=== PATIENT | male | born 1960 | race Caucasian/White ===

== ENCOUNTER 2018-08-11 14:00 | Inpatient (IN) ==
[2018-08-11 14:31] LABS: BASO# 0.02 X1000 (0.0-0.2); BASO% 0.2 % (0.0-0.8); EOS# 0.03 X1000 (0.0-0.7); EOS% 0.2 % (0.0-10.0); HEMATOCRIT 50.4 % (42.0-52.0); HEMOGLOBIN 17.5 g/dL (14.0-18.0); IMM GRAN# 0.03 X1000 (0.0-0.04); IMM GRAN% 0.2 % (0.0-0.5); LYMPH# 1.46 X1000 (1.2-3.4); MCH 33.3 PG (27-31); MCHC 34.7 g/dL (33-37); MCV 95.8 FL (81-99); MONO# 0.65 X1000 (0.11-0.59); MONO% 5.4 % (1.7-9.3); MPV 10.9 FL (7.4-10.4); NEUT# 9.93 X1000 (1.4-6.5); PLT 196 X1000 (130-400); RBC 5.26 XMIL (4.7-6.1); RDW 12.2 % (11.5-14.5); WBC 12.12 X1000 (4.8-10.8)
[2018-08-11 15:06] LABS: AGAP 13; ALB/GLOB RATIO 1.5; ALBUMIN 4.6 g/dL (3.5-5.0); ALKALINE PHOSPHATASE 147 U/L (32-122); AMYLASE 53 U/L (20-200); BUN 7 mg/dL (8-22); CALCIUM 9.3 mg/dL (8.8-10.2); CHLORIDE 100 mmol/L (98-107); COSMO 282; ESTIMATED GFR > 60; GLUCOSE 146 mg/dL (70-104); GOT 17 U/L (10-34); GPT 45 U/L (10-44); LIPASE 26 U/L (13-60); POTASSIUM 3.9 mmol/L (3.5-5.1); SODIUM 141 mmol/L (136-145); TCO2 28 mmol/L (25-35); TOTAL PROTEIN 7.6 g/dL (6.3-8.3)
[2018-08-11] MEDS ORDERED: NS 1,000 ML IV ONE (16:16)
[2018-08-11] MEDS ORDERED: TORADOL IV ONE (16:16)
[2018-08-11] MEDS ORDERED: REGLAN IV ONE (16:16)
[2018-08-11] MEDS ORDERED: BENTYL IM ONE (16:16)
[2018-08-11] MEDS ORDERED: G.I. COCKTAIL PO ONE (16:16)
[2018-08-11] MEDS ORDERED: ZOFRAN IV ONE (16:16)
[2018-08-11] MEDS ORDERED: PEPCID IV ONE (16:16)
[2018-08-11] MEDS ORDERED: LABETALOL IV ONE (16:51)
--- NOTE | 2018-08-11 17:50 | Diag Imaging Result Doc PS360 ---
EXAM: CT ABD/PELVIS W/IV CONT ONLY INDICATION: epigastric pain TECHNIQUE: This exam was performed using automated exposure control, adjustment of mA or kV according to patient size, and/or use of iterative reconstruction technique. COMPARISON: 09/16/2011 FINDINGS: There are infiltrates at both lung bases, more prominent on the right suggesting possible pneumonia. However, there is also likely a component of atelectasis. Please correlate clinically. The gallbladder is distended and there is pericholecystic inflammatory stranding consistent with cholecystitis. No radiopaque stones are identified. The liver, spleen, pancreas, and adrenal glands are unremarkable. There is focal cortical scarring associated with the right kidney. The kidneys are essentially unremarkable, otherwise. The urinary bladder is unremarkable. There is uncomplicated diverticulosis coli. The appendix is normal. No focal bowel wall thickening and no bowel obstruction is appreciated. The remainder of the GI tract is grossly unremarkable. IMPRESSION: 1.Distended gallbladder with surrounding inflammatory stranding consistent with acute cholecystitis. 2.Mild infiltrates at both lung bases, more prominent on the right. Electronically signed by Norris Post 08/11/2018 5:48 PM
[2018-08-11 18:24] LABS: URINE SOURCE CLEAN CATCH
[2018-08-11] MEDS ORDERED: DILAUDID IV ONE (18:25)
[2018-08-11] MEDS ORDERED: ZOSYN 4.5 GM in NS 100 ML IV ONE (18:25)
[2018-08-11 18:27] LABS: BILIRUBIN URINE NEGATIVE (NEGATIVE); BLOOD URINE NEGATIVE (NEGATIVE); COLOR YELLOW; GLUCOSE URINE TRACE mg/dL (NEGATIVE); KETONE URINE 10 mg/dL (NEGATIVE); LEUKOCYTES URINE NEGATIVE (NEGATIVE); NITRITE URINE NEGATIVE (NEGATIVE); PH URINE 7.5; PROTEIN URINE TRACE mg/dL (NEGATIVE); SP GRAVITY URINE 1.032; TURBIDITY URINE CLEAR (CLEAR); UROBILINOGEN URINE NORMAL (NORMAL)
[2018-08-11 18:28] LABS: UR EPITHELIAL CELLS <10 /HPF (<10); URINE BACTERIA NEGATIVE /HPF; URINE RBC <10 /HPF (<10); URINE WBC <10 /HPF (<10)
--- NOTE | 2018-08-11 18:48 | PROVIDER DOCUMENTATION ---
This chart was entered by Misty Post Scribe, acting as scribe for Stalin Skelton MD. HPI-Abdominal Pain/GI Problem - General Chief Complaint: Abdominal Pain Stated Complaint: ABD PAIN Time Seen by Provider: 08/11/18 16:06 Source: patient Allergies/Adverse Reactions: Patient Allergies Allergy/AdvReac Type Severity Reaction Status Date / Time No Known Allergies Allergy Verified 03/03/18 10:05 Home Medications: Home Medication List Medication Instructions Recorded Confirmed Last Taken Type Omeprazole [Prilosec] 40 mg PO DAILY #30 capsule. 03/10/18 Unknown Rx - History of Present Illness-ABD Nature of Presenting Problems: 58 yom c/o abd pain, nausea and no appetite starting 0400. pt sts he has hx of gall stones and ulcers. pt took reflux meds w/no relief. pt gastro dr was Dr. Dhillon. pt drinks alcohol occ. pt denies diaphoresis, cp, and sob. Abdominal Pain Onset Location: reports: generalized abdomen Pain Radiation: reports: no radiation Quality of Pain: reports: aching Severity in ED: reports: mild Onset/Duration: reports: this morning Timing: reports: still present Activities at Onset: reports: none Review of Systems - Adult - REVIEW OF SYSTEMS - ADULT Constitutional: reports: no symptoms reported. denies: fever, fatique, night sweats Eyes: reports: no symptoms reported Ears, Nose, Mouth & Throat: reports: no symptoms reported Cardiovascular: reports: no symptoms reported. denies: chest pain, heart murmur, irregular heart rate Respiratory: reports: no symptoms reported. denies: pleurisy, shortness of breath, wheezing Gastrointestinal: reports: see HPI, abdominal pain, nausea, poor appetite. denies: hematemesis, constipation, diarrhea, vomiting Genitourinary: reports: no symptoms reported. denies: dysuria, discharge, frequency Musculoskeletal: reports: no symptoms reported. denies: back pain, muscle aches, neck pain Integumentary: reports: no symptoms reported Neurological: reports: no symptoms reported Psychiatric: reports: no symptoms reported Endocrine: reports: no symptoms reported Hematologic/Lymphatic: reports: no symptoms reported Allergic/Immunologic: reports: no symptoms reported All Other Systems: Reviewed and Negative Past History - Adult - PAST MEDICAL HISTORY-ADULT Review of Records: reports: Old Records Reviewed, Nursing Assessment Review, Medications Reviewed, Social history reviewed & non-contributory. Major Childhood Illnesses: reports: denies history Cardiovascular: reports: HTN Respiratory: reports: denies history Gastrointestinal: reports: GERD Obstetrical/Gynecological: reports: denies history Genitourinary: reports: denies history Musculoskeletal: reports: denies history Neurological: reports: denies history Endocrine/Immune: reports: denies history Other Conditions: reports: other (colon polyps) - PRIOR SURGERIES/PROCEDURES Surgical/Procedure History: reports: none - IMMUNIZATION STATUS Childhood Immunizations: See Nurse Assessment Flu Vaccine: See Nurse Assessment - FAMILY HISTORY Family History: reviewed, not pertinent - SOCIAL HISTORY Smoking: cigarettes, greater than 1 pack/day Provider spent 3-5 mins advising pt. on dangers of tobacco.: Discussed manners to quit use, and f/u contacts for add'l counseling. Substance Use: alcohol Alcohol Use Frequency: occasionally Physical Exam-General - PHYSICAL EXAM-ADULT Initial Vital Signs Reviewed: Yes - CONSTITUTIONAL General Appearance: alert, mild distress. negative: slow to respond, obtunded, combative - EYES Eyes: PERRL/EOMI, pink conjunctivae - HEAD, EARS, NOSE, MOUTH & THROAT HENMT: normocephalic/atraumatic, moist mucous membranes, normal ENT inspection - NECK Neck: non-tender, full range of motion, supple, normal inspection - RESPIRATORY Respiratory: chest non-tender, lungs clear, normal breath sounds - CARDIOVASCULAR Cardiovascular: normal peripheral pulses, regular rate, rhythm, other (pt bp 22/123 1410). negative: JVD, bradycardia, tachycardia - GASTROINTESTINAL (ABDOMEN) Abdominal Exam: normal bowel sounds, soft, no organomegaly, no pulsatile mass, guarding, tenderness (ten over gen abd w/light palp.). negative: non tender, abdominal bruit, abnormal bowel sounds, distended, rigid, rebound - LYMPHATIC Lymphatic: no adenopathy - MUSCULOSKELETAL Back Exam: normal inspection, no CVA tenderness, no vertebral tenderness Extremity: normal range of motion, non-tender, normal inspection Peripheral Pulses: radial (R): 2+, radial (L): 2+ - SKIN Integumentary: normal color, normal turgor, warm/dry - NEUROLOGIC Neurologic: grossly normal, no motor/sensory deficits - PSYCHIATRIC Psych/Mental Status: normal mood/affect, normal thought content, normal thought process, oriented x 3 Progress - PLAN OF CARE/RESULTS Progress/Plan/Lab Results: Vital Signs - 8 hr 08/11/18 14:10 Temperature 98.5 F Pulse Rate 77 Respiratory Rate 18 Blood Pressure 225/123 O2 Sat by Pulse Oximetry 99 Laboratory Results - last 24 hr 08/11/18 08/11/18 14:18 14:18 WBC 12.12 H RBC 5.26 Hgb 17.5 Hct 50.4 MCV 95.8 MCH 33.3 H MCHC 34.7 RDW Std Deviation 12.2 Plt Count 196 MPV 10.9 H Immature Gran % (Auto) 0.2 Neut % (Auto) 82.0 H Lymph % (Auto) 12.0 L Thomas % (Auto) 5.4 Eos % (Auto) 0.2 Baso % (Auto) 0.2 Immature Gran # (Auto) 0.03 Neut # (Auto) 9.93 H Lymph # (Auto) 1.46 Thomas # (Auto) 0.65 H Eos # (Auto) 0.03 Baso # (Auto) 0.02 Sodium 141 Potassium 3.9 Chloride 100 Carbon Dioxide 28 Anion Gap 13 BUN 7 L Creatinine 1.0 Estimated GFR/1.73 m2 > 60 BUN/Creatinine Ratio 7 Glucose 146 H Calculated Osmolality 282 Calcium 9.3 Total Bilirubin 0.80 AST 17 ALT 45 H Alkaline Phosphatase 147 H Total Protein 7.6 Albumin 4.6 Globulin 3.0 Albumin/Globulin Ratio 1.5 Amylase 53 Lipase 26 Orders Category Date Time Status Saline Loc DIRECTED Care 08/11/18 14:14 Active NPO Diet 08/11/18 14:[address] ABD/PELVIS W/IV CONT ONLY [CT] Stat Exams 08/11/18 16:16 Ordered ALCOHOL BLOOD Stat Lab 08/11/18 16:18 Ordered AMYLASE [CHEM] Stat Lab 08/11/18 14:18 Completed CBC WITH ELECTRONIC DIFF [HEME] Stat Lab 08/11/18 14:18 Completed COMPREHENSIVE METABOLIC PANEL [CHEM] Stat Lab 08/11/18 14:18 Completed LIPASE [CHEM] Stat Lab 08/11/18 14:18 Completed OCCULT BLOOD SCREENING [STOOL] Stat Lab 08/11/18 16:17 Uncollected URINALYSIS W/POSS RFLX CULT [URINALYSIS] Stat Lab 08/11/18 14:14 Uncollected 0.9% Sodium Chloride Inj [Ns] 1,000 ml Med 08/11/18 16:16 Active IV 999 mls/hr Dicyclomine [Bentyl] Med 08/11/18 16:16 Discontinued 20 mg IM NOW ONE Famotidine [Pepcid] Med 08/11/18 16:16 Discontinued 40 mg IV NOW ONE Ketorolac [Toradol] Med 08/11/18 16:16 Discontinued 15 mg IV NOW ONE Lido/Conway Alk/Al&mg Hydrox [G.i. Cocktail] Med 08/11/18 16:16 Discontinued 30 ml PO NOW ONE Metoclopramide [Reglan] Med 08/11/18 16:16 Discontinued 10 mg IV NOW ONE Ondansetron [Zofran] Med 08/11/18 16:16 Discontinued 4 mg IV NOW ONE Result Diagrams: 08/11/18 14:18 08/11/18 14:18 - CT/MRI 1 CT Study: Abdomen Impression: Abnormal, See EMR Report ( EXAM: CT ABD/PELVIS W/IV CONT ONLY INDICATION: epigastric pain TECHNIQUE: This exam was performed using automated exposure control, adjustment of mA or kV according to patient size, and/or use of iterative reconstruction technique. COMPARISON: 09/16/2011 FINDINGS: There are infiltrates at both lung bases, more prominent on the right suggesting possible pneumonia. However, there is also likely a component of atelectasis. Please correlate clinically. The gallbladder is distended and there is pe richolecystic inflammatory stranding consistent with cholecystitis. No radiopaque stones are identified. The liver, spleen, pancreas, and adrenal glands are unremarkable. There is focal cortical scarring associated with the right kidney. The kidneys are essentially unremarkable, otherwise. The urinary bladder is unremarkable. There is uncomplicated diverticulosis coli. The appendix is normal. No focal bowel wall thickening and no bowel obstruction is appreciated. The remainder of the GI tract is grossly unremarkable. IMPRESSION: 1.Distended gallbladder with surrounding inflammatory stranding consistent with acute cholecystitis. 2.Mild infiltrates at both lung bases, more prominent on the right. Electronically signed by Norris Post 08/11/2018 5:48 PM [id number] Interpreting Physician: Norris Post MD Dictated Date/Time: 08/11/18 2766 cc: Stalin Skelton MD; None,PCP) - CONSULTS/PCP/HOSPITALIST Notification #1 *Consult/PCP/Hospitalist*: Garret paged at 1823 Time Discussed: 18:26 Reason/Comments: Clear liquids, surgery maybe Tuesday, admit to hospitlaist Consult Disposition: Admit #2 Consult: Hospitalist paged at 1827 Time Discussed: 18:45 (Richie) Consult Disposition: Admit Departure - Departure Date of Disposition Decision: 08/11/18 Time of Disposition Decision: 18:46 DIAGNOSIS: Acalculous cholecystitis, Hypertensive urgency, Tobacco use disorder Disposition: ADMITTED INPATIENT 09 Certified Medical Emergency: Emergent Condition: Fair Referrals and Follow-Ups: None,PCP [Primary Care Provider] - - Critical Care Note This patient required my direct & personal management of CC.: Yes Total Time (mins): 40 Critical Care Statement: This patient required my direct personal management to treat or rule out processes, the absence of which, could potentiallly result in sudden, clinically significant life or limb threatening deterioration. Attestation - Physician/ SONDRA Attestation Patient care was provided by Advanced Practice Provider:: No The physician spent face to face time with patient:: Yes Advanced Practice Provider documentation review:: Supervising physician onsite and consulted in the evaluation and care of this patient. The physician did have a face to face encounter with the patient. This chart was documented by the indicated scribe, (Misty Post Scribe) and accurately reflects the services I performed and decisions made by me, Stalin Skelton MD, as attested by the provider's signature.
--- NOTE | 2018-08-11 19:51 | Diag Imaging Result Doc PS360 ---
EXAM: US GB < RUQ (LIMITED) INDICATION: ruq pain COMPARISON: 01/27/2018 FINDINGS: There are several shadowing stones in the lumen of the gallbladder including a large stone lodged in the gallbladder neck. The gallbladder is distended and there is gallbladder wall thickening consistent with known cholecystitis also seen on a recent CT. The common bile duct is borderline prominent measuring up to 7 mm in diameter. The wellness nurse rn reported a negative sonographic Mendoza sign but the patient has recently been given pain medication. The liver is grossly unremarkable. Portal venous flow is hepatopetal. The pancreas is largely obscured. The visualized portion is unremarkable. The aorta and IVC are grossly unremarkable. The right kidney is grossly unremarkable. IMPRESSION: Distended gallbladder with cholelithiasis and thickening of the gallbladder wall consistent with known cholecystitis, which is also seen on the recent CT. Electronically signed by Norris Post 08/11/2018 7:48 PM
[2018-08-11] MEDS ORDERED: PROTONIX IV SCH (20:00)
[2018-08-11] MEDS ORDERED: SODIUM CHLORIDE 0.9% INJ SCH (20:00)
[2018-08-11 20:07] LABS: HEMOGLOBIN A1C 5.4 % (4.8-6.0)
[2018-08-11] MEDS ORDERED: ZITHROMAX 500 MG/NS 500 MG/250 ML IVPB IV SCH (21:00)
--- NOTE | 2018-08-11 21:48 | HISTORY AND PHYSICAL ---
CHIEF COMPLAINT: Abdominal pain. HISTORY OF PRESENT ILLNESS: Mr. Motley is a 58-year-old male with a history of malignant polyp with frequent colonoscopies. I believe he had an Candace tattoo placed to follow up on the lesion and maybe at some point, he stopped following up but he had been seeing Dr. Korina Dhillon and has had recurrent multiple polyps with removal. At any rate, he also has gallstones, which were known. He has had ultrasound of his gallbladder in the past. Today he started having intense abdominal pain in the right upper quadrant and nausea and vomiting, so he came into the Emergency Room. CT and ultrasound showed distended gallbladder with cholelithiasis and cholecystitis. Dr. Combs was consulted. The patient will be admitted for further evaluation and treatment. PAST MEDICAL HISTORY: 1. Malignant polyp. 2. Hypertension, untreated. 3. Tobacco use. 4. Questionable GI bleed. 5. GERD. PREVIOUS SURGICAL HISTORY: Endoscopy and colonoscopy with multiple polyps removed. ALLERGIES: No known drug allergies. HOME MEDICATIONS: Protonix 40 mg p.o. daily. FAMILY HISTORY: Colon cancer in his father. REVIEW OF SYSTEMS: A 14-point review of systems was completed with the patient. He denied melena, sarah colored stools. He did admit to nausea and vomiting. Denied any hematemesis. The patient has also not had hematochezia or diarrhea. Denied fever and chills. States that he has had a nonproductive cough. All other systems reviewed and found to be negative. Other pertinent positives are listed above in the HPI. PHYSICAL EXAMINATION: VITAL SIGNS: Temperature 97.7 degrees, pulse 70, respirations 12, blood pressure 195/110, oxygen saturation 97% on room air. GENERAL: A pleasant, 58-year-old male lying on the ER stretcher. Answers all questions appropriately. Alert and oriented x 3. HEENT: Head is atraumatic, normocephalic. Pupils equal, round and reactive to light. Extraocular eye movements are intact. Sclerae are anicteric. Conjunctivae are pink. Oral mucosa is moist. NECK: Supple. No JVD. No thyromegaly. Trachea is midline. No cervical lymphadenopathy. CARDIAC: S1, S2 appreciated. No murmurs, gallops or rubs. LUNGS: Mild expiratory wheezing noted throughout the air mills. No rhonchi, no rales. Symmetrical rise and fall with respirations. ABDOMEN: Bowel sounds present in all 4 quadrants and normoactive. No pulsatile masses. No organomegaly. EXTREMITIES: No cyanosis, clubbing or edema; 2+ pedal pulses bilaterally. GENITOURINARY: No bladder distention. Otherwise deferred. NEUROLOGICAL: Alert and oriented x 3. No focal motor deficits noted. Otherwise nonfocal examination. DIAGNOSTIC DATA: CT and abdominal ultrasound show cholecystitis and cholelithiasis. Bilateral lower lobe infiltrates in the lungs noted. Laboratory data: WBC 12.12, hemoglobin 17.5, hematocrit 50.4, platelet count 196. Sodium 141, potassium 3.9, chloride 100, carbon dioxide 28, BUN 7, creatinine 1, glucose 146. Hemoglobin A1C of 5.4. Urinalysis unremarkable. ASSESSMENT AND PLAN: 1. Cholelithiasis with cholecystitis. We will give Zosyn 3.375 grams IV q.6h. Morphine as needed for pain. Zofran as needed for nausea. Clear liquids. Dr. Combs has been consulted for surgery. 2. Gastroesophageal reflux disease. Protonix 40 mg IV daily. 3. Bilateral lobe infiltrates. Questionable aspiration pneumonia versus community-acquired pneumonia. We will add azithromycin to the patient's antibiotics schedule and get blood cultures. Order repeat x-ray tomorrow morning. 4. Tobacco abuse. Smoking cessation was gone over with the patient and he does not want to quit at this time. A NicoDerm patch will be added to his medication profile. 5. Previous history of malignant polyp. The patient was informed that Dr. Dhillon is no longer practicing. He will need to follow up with Dr. Carrizales. He has been following up on this and the patient is aware of the physician scheduling that will need to be changed. 6. Further recommendations per patient's clinical course. Dictated by NHUNG Gonzalez for Jett Quiroz MD I have performed a face to face diagnostic evaluation. Labs/ Imaging- reviewed. Exam- chest - clear, ABD- RUQ tenderness A/P- Cholecystitis- Admit, IV ABX, General surgery consult. Dr. Quiroz cc: NHUNG Gonzalez MD Matthew L. Figh, MD Khurshid Yousuf, MD MTDD
[2018-08-11] MEDS: MORPHINE IV PRN (22:39)
[2018-08-11] MEDS: ZOFRAN IV PRN (22:39)
[2018-08-11] MEDS: TYLENOL PO PRN (22:39)
[2018-08-11] MEDS: ZITHROMAX 500 MG/NS 500 MG/250 ML IVPB IV SCH (22:41)
[2018-08-11] MEDS: NS 1,000 ML IV SCH (23:37)
[2018-08-11] MEDS: APRESOLINE IV PRN (23:44)
[2018-08-12] MEDS: NICODERM PATCH TD SCH ×2 (00:51→08:18)
[2018-08-12] MEDS: ZOFRAN IV PRN ×3 (00:58→08:32)
[2018-08-12] MEDS: MORPHINE IV PRN ×2 (00:58→04:12)
[2018-08-12] MEDS: APRESOLINE IV PRN (03:19)
[2018-08-12] MEDS: DILAUDID IV PRN ×6 (04:53→23:37)
[2018-08-12] MEDS: TYLENOL PO PRN ×2 (04:55→20:18)
[2018-08-12] MEDS: PROTONIX PO SCH ×2 (04:55→08:19)
[2018-08-12] MEDS: ZOSYN 3.375 GM in NS 50 ML IV SCH ×4 (05:24→23:37)
[2018-08-12] MEDS: DUONEB (A & A) INH SCH ×4 (05:38→21:58)
[2018-08-12 06:11] LABS: BASO# 0.01 X1000 (0.0-0.2); BASO% 0.1 % (0.0-0.8); EOS# 0.01 X1000 (0.0-0.7); EOS% 0.1 % (0.0-10.0); HEMATOCRIT 45.4 % (42.0-52.0); HEMOGLOBIN 15.8 g/dL (14.0-18.0); IMM GRAN# 0.06 X1000 (0.0-0.04); IMM GRAN% 0.4 % (0.0-0.5); LYMPH# 1.83 X1000 (1.2-3.4); LYMPH% 12.5 % (20.5-51.1); MCH 33.5 PG (27-31); MCHC 34.8 g/dL (33-37); MCV 96.4 FL (81-99); MONO# 1.07 X1000 (0.11-0.59); MONO% 7.3 % (1.7-9.3); MPV 11.1 FL (7.4-10.4); NEUT# 11.62 X1000 (1.4-6.5); NEUT% 79.6 % (42.2-75.2); PLT 171 X1000 (130-400); RBC 4.71 XMIL (4.7-6.1); RDW 12.3 % (11.5-14.5)
[2018-08-12 06:34] LABS: INR 0.94; PROTIME 13.3 Seconds (11.0-16.0); PTT 33.1 Seconds (22.3-41.8)
[2018-08-12 06:38] LABS: AGAP 11; BUN 6 mg/dL (8-22); CALCIUM 8.3 mg/dL (8.8-10.2); CHLORIDE 100 mmol/L (98-107); COSMO 275; CREATININE 0.7 mg/dL (0.7-1.2); ESTIMATED GFR > 60; GLUCOSE 122 mg/dL (70-104); POTASSIUM 3.1 mmol/L (3.5-5.1); SODIUM 138 mmol/L (136-145); TCO2 27 mmol/L (25-35)
--- NOTE | 2018-08-12 07:01 | GENERAL SURGERY CONSULTATION ---
DATE: 08/12/2018 HISTORY OF PRESENT ILLNESS: A 58-year-old male, with a history of malignant polyps and frequent colonoscopies, presenting now with intense abdominal pain in the right upper quadrant, nausea, and vomiting. He has had a history of cholelithiasis. He came to the emergency department, had a CT scan that showed distended gallbladder, cholelithiasis, and cholecystitis, and had an ultrasound that confirmed it. He has been admitted by the hospitalist service and I have been asked to evaluate an opinion. The patient says he is feeling better since he was admitted and started on IV pain medicine and antibiotics. PAST MEDICAL HISTORY: History of polyps. Hypertension. Tobacco use. Questionable GI bleed. Gastroesophageal reflux disease. PAST SURGICAL HISTORY: EGD and colonoscopy. ALLERGIES: None. HOME MEDICATIONS: Reviewed. FAMILY HISTORY: Positive for colon cancer. REVIEW OF SYSTEMS: A full 10 point review of systems obtained and negative except those specified in the HPI. PHYSICAL EXAMINATION: Vitals: The patient is currently afebrile. His vital signs are stable. General: No acute distress. HEENT: Normocephalic, atraumatic. Pupils equal, round, and reactive to light. Mucous membranes moist. Oropharynx benign. Neck: Supple. Trachea midline. Cardiovascular: Regular rate and rhythm. Lungs: Grossly clear. Abdomen: Soft. Some tenderness in the right upper quadrant but no peritoneal signs. Extremities: Moves all extremities. Neurologic: Grossly intact. Skin: No signs of jaundice. Vascular: All extremities perfused. DIAGNOSTIC DATA: Laboratory reviewed from this morning with white blood cell count 14, hematocrit normal, platelet count normal. Bilirubin was normal yesterday. Imaging reviewed. ASSESSMENT AND PLAN: A 58-year-old with cholecystitis. 1. Cholecystitis. At this time, we will plan on surgical intervention tomorrow. We will give him 24 hours of antibiotics, make him NPO after midnight. Discussed with him the risks, benefits, and alternatives of the procedure, risks including but not limited to bleeding, infection, risk of anesthesia risk of common bile duct injury risk of bile leak, risk of injuring other organs, all discussed with the patient. He voiced understanding and wished to proceed with the procedure. 2. History of malignant polyps. At this time, we will get him over his acute issue then plan for colonoscopy in the near future on the patient. I can do this in the outpatient setting for the patient. 3. Medical comorbidities. At this time being managed by the hospitalist service. I appreciate their help. cc: Richard Combs MD
[2018-08-12] MEDS: NS 1,000 ML IV SCH ×2 (08:18→23:42)
[2018-08-12] MEDS ORDERED: DUONEB (A & A) INH PRN (16:38)
[2018-08-12] MEDS: PRINIVIL PO SCH (16:59)
--- NOTE | 2018-08-12 19:01 | PROGRESS NOTE ---
DATE: 08/12/2018 SUBJECTIVE: The patient has no major complaints. He is seems like he is doing okay. OBJECTIVE: Blood pressure is 155/86, heart rate 92, respiratory rate is 16, temperature was 98 degrees.Cardiovascular: Regular rate and rhythm. Pulmonary: Bilateral breath sounds, clear to auscultation. GI was soft, nontender, nondistended. Bowel sounds are positive. Extremity exam: No clubbing or cyanosis. Lymphatic exam: No peripheral edema. Neurological exam was nonfocal. LABORATORY DATA: White count is 14, potassium is 3.1. TSH is 4. ASSESSMENT AND PLAN: Problem list: 1. Acute cholecystitis. Plan for laparoscopic cholecystectomy tomorrow. He is on Zosyn, intravenous pain medication, Zofran. 2. Gastroesophageal reflux disease. He is on proton pump inhibitor, which we have replaced with p.o. 3. Pneumonia. He is on antibiotics, Zosyn and azithromycin. Continue to follow. 4. Hypertension, which is not completely controlled. He is not on any medications that I can tell, so we will initiate lisinopril and follow. 5. Disposition pending his clinical status. cc: Rivera Siddiqi MD
[2018-08-12] MEDS ORDERED: ZITHROMAX 500 MG/NS 500 MG/250 ML IVPB IV SCH (20:00)
[2018-08-12] MEDS: ZITHROMAX 500 MG/NS 500 MG/250 ML IVPB IV SCH ×2 (20:17→23:23)
[2018-08-12] MEDS ORDERED: AYR NASAL SPRAY NAS PRN (20:17)
[2018-08-13] MEDS: ZOSYN 3.375 GM in NS 50 ML IV SCH ×4 (05:43→22:24)
[2018-08-13 06:26] LABS: BASO# 0.03 X1000 (0.0-0.2); BASO% 0.2 % (0.0-0.8); EOS# 0.02 X1000 (0.0-0.7); EOS% 0.1 % (0.0-10.0); HEMATOCRIT 46.5 % (42.0-52.0); HEMOGLOBIN 15.8 g/dL (14.0-18.0); IMM GRAN# 0.07 X1000 (0.0-0.04); IMM GRAN% 0.4 % (0.0-0.5); LYMPH# 1.64 X1000 (1.2-3.4); LYMPH% 8.5 % (20.5-51.1); MCH 33.1 PG (27-31); MCV 97.5 FL (81-99); MONO# 1.48 X1000 (0.11-0.59); MONO% 7.7 % (1.7-9.3); MPV 11.4 FL (7.4-10.4); NEUT% 83.1 % (42.2-75.2); PLT 179 X1000 (130-400); RBC 4.77 XMIL (4.7-6.1); RDW 12.5 % (11.5-14.5); WBC 19.34 X1000 (4.8-10.8)
--- NOTE | 2018-08-13 06:54 | GENERAL SURGERY PROGRESS NOTE ---
DATE: 08/13/2018 SUBJECTIVE: Patient seems to be doing okay. He is feeling a little bit better. OBJECTIVE: Vital Signs: The patient is currently afebrile. He does have a low-grade tachycardia, 110s. Otherwise, his vital signs have been stable. General Examination: No acute distress. Alert and interactive. HEENT: Normocephalic, atraumatic. Pupils equal, round, reactive to light. Mucous membranes moist. Oropharynx benign. Neck: Supple. Trachea midline. Cardiovascular: Regular rate and rhythm. Lungs: Grossly clear. Abdominal Examination: Less tender to palpation in the right upper quadrant. Extremities: Moves all extremities. Neurologic: Grossly intact. Skin: No signs of jaundice. Vascular: All extremities perfused. Laboratory: Reviewed from yesterday. ASSESSMENT AND PLAN: A 58-year-old gentleman with cholecystitis. 1. Cholecystitis. At this time, we will plan on surgical intervention today. Discussed with him and documented in the note the risks, benefits, and alternatives. Again, he is on the schedule for today. 2. Hypothyroidism. At this time, we will probably evaluate further as an outpatient. cc: Richard Combs MD
[2018-08-13 06:57] LABS: AGAP 14; BUN 9 mg/dL (8-22); CALCIUM 8.6 mg/dL (8.8-10.2); CHLORIDE 93 mmol/L (98-107); COSMO 264; CREATININE 0.8 mg/dL (0.7-1.2); ESTIMATED GFR > 60; GLUCOSE 84 mg/dL (70-104); SODIUM 133 mmol/L (136-145); TCO2 26 mmol/L (25-35)
[2018-08-13] MEDS: PROTONIX PO SCH (07:23)
[2018-08-13] MEDS ORDERED: QUELICIN (DOSE) ONE (07:53)
[2018-08-13] MEDS ORDERED: VERSED ONE (07:53)
[2018-08-13] MEDS ORDERED: XYLOCAINE-MPF 2% ONE (07:53)
[2018-08-13] MEDS ORDERED: DIPRIVAN 1% ONE (07:53)
[2018-08-13] MEDS ORDERED: PEPCID ONE (07:54)
[2018-08-13] MEDS ORDERED: LR 1,000 ML ONE (08:02)
[2018-08-13] MEDS ORDERED: MARCAINE 0.25% PF/EPI 1:200,000 ONE (08:02)
[2018-08-13] MEDS ORDERED: SODIUM CHLORIDE 0.9% ONE (08:02)
[2018-08-13] MEDS ORDERED: FENTANYL ONE (08:09)
[2018-08-13] MEDS ORDERED: TORADOL ONE (08:11)
[2018-08-13] MEDS ORDERED: DECADRON ONE (08:11)
[2018-08-13] MEDS ORDERED: ZOFRAN ONE (08:11)
[2018-08-13] MEDS ORDERED: ZEMURON ONE (08:11)
[2018-08-13] MEDS ORDERED: EPHEDRINE ONE (08:16)
[2018-08-13] MEDS ORDERED: ROBINUL ONE (09:12)
[2018-08-13] MEDS ORDERED: NEOSTIGMINE ONE (09:12)
[2018-08-13] MEDS: PRINIVIL PO SCH (10:31)
[2018-08-13] MEDS: NICODERM PATCH TD SCH (10:32)
[2018-08-13] MEDS: DUONEB (A & A) INH SCH ×3 (10:48→22:50)
--- NOTE | 2018-08-13 11:06 | OPERATIVE NOTE ---
PROCEDURE DATE: 08/13/2018 PREOPERATIVE DIAGNOSIS: Acute cholecystitis. POSTOP DIAGNOSIS: Acute cholecystitis. PROCEDURE: Laparoscopic cholecystectomy. SURGEON: Richard Combs MD. RESOURCE TEACHER: None. ANESTHESIA: General endotracheal. INTRAOPERATIVE FINDINGS: Inflamed gallbladder with a white bile consistent with cystic duct obstruction. COMPLICATIONS: None at time of dictation. ESTIMATED BLOOD LOSS: 50 mL. SPECIMENS REMOVED: Gallbladder. BRIEF HISTORY: 58-year-old gentleman presenting with classic symptoms for cholecystitis. I felt that he would benefit from a cholecystectomy. The risks, benefits, and alternatives were discussed and documented in the chart. All questions answered. PROCEDURE: After informed consent was obtained patient brought to the operative theatre, transferred to the operative table, placed in supine position. General endotracheal anesthesia was then performed without complication. A formal time-out was then performed confirming patient and procedure. All in agreement. At that time, attention was given to the abdomen an infraumbilical incision was made through which using Optiview technique we inserted a 12 mm trocar connected to insufflation, pneumoperitoneum was achieved. Under direct physician placed 3 more trocars, all 5 mm, 1 subxiphoid., 2 in the right upper quadrant. Using these the gallbladder was identified. There was a dense adhesive process inflammatory process occurring. The omentum was stuck up against it. We were able to dissect the rind off the gallbladder. We had to aspirate some of the gallbladder fluid which was white bile suggesting cystic duct obstruction out. We retracted cephalad. With some difficulty we were able to dissect out the cystic artery, doubly clipped and ligated. We dissected out the cystic duct. We achieved the critical view of safety. Doubly clipped the cystic duct but it was very large, so we placed an Endoloop around it also. We dissected the gallbladder off the gallbladder fossa. Since we drained a significant amount of bile, there was bleeding. It was inflamed and we had difficulty with the cystic duct. We elected to leave a drain for the most lateral trocar site, placed in the gallbladder fossa. We then put the gallbladder into an Endobag and brought out through the infraumbilical incision that had to be enlarged to accommodate the stone burden. He did have large stones in his gallbladder. We irrigated out the abdomen until the suction fluid was clear. At the completion the case, we felt like the Endoloop and the clips were in good position. There was no active bleeding, no drainage of bile. We then removed insufflation, disconnected the trocars and pneumoperitoneum was released. We then closed the fascia with 0 Vicryl in 2 [id number] stitches. We then closed all skin incisions with 4-0 Monocryl suture. We then secured the drain in with 3-0 nylon. The patient tolerated procedure well. We will need to keep him in hospital for 24 hours to watch him. cc: Richard Combs MD
[2018-08-13] MEDS: DILAUDID IV PRN (12:28)
[2018-08-13] MEDS: POTASSIUM CHLORIDE 20 MEQ/SWI 20 MEQ/100 ML IVPB IV SCH ×2 (12:49→15:02)
[2018-08-13] MEDS: NS 1,000 ML IV SCH ×2 (13:30→15:03)
--- NOTE | 2018-08-13 17:25 | PROGRESS NOTE ---
DATE: 08/13/2018 SUBJECTIVE: The patient has no complaints. He is seen postoperatively, doing pretty well, feels like pain is under control. He has acute cholecystitis, laparoscopic cholecystectomy today. Vital signs: Blood pressure is like 1 teens over 70s, heart rate 90s, respiratory rate 20, temperature was 99.5 degrees. Cardiovascular: Regular rate and rhythm. Pulmonary: Bilateral breath sounds clear to auscultation. GI: Was soft, nontender, nondistended. Bowel sounds are positive. He had dressings overlying his laparoscopy scar that seemed intact. LABORATORY DATA: White count is 19 which is up from yesterday, hemoglobin and hematocrit 15 and 46, platelets 177,000. Potassium 3, sodium 133, free T4 normal consistent with sick euthyroid. PROBLEM LIST: 1. Acute cholecystitis status post laparoscopic cholecystectomy. I would continue Zosyn at least until his white count comes down. 2. Pneumonia, reported pneumonia on x-ray. Will repeat his chest x-ray tomorrow and see what is going on there. Continue incentive spirometry. Continue breathing treatments. 3. Hypertension. He is on lisinopril. That seems to be controlling his blood pressure pretty well. DISPOSITION: Pending his clinical status. I think overall he seems to be doing better. Home will be per [facility]. cc: Rivera Siddiqi MD
[2018-08-13 18:10] LABS: AGAP 14; ALB/GLOB RATIO 1.1; ALBUMIN 3.4 g/dL (3.5-5.0); ALKALINE PHOSPHATASE 93 U/L (32-122); BUN 10 mg/dL (8-22); CALCIUM 8.3 mg/dL (8.8-10.2); CHLORIDE 95 mmol/L (98-107); COSMO 269; CREATININE 1.1 mg/dL (0.7-1.2); ESTIMATED GFR > 60; GLUCOSE 138 mg/dL (70-104); GOT 35 U/L (10-34); GPT 30 U/L (10-44); POTASSIUM 3.9 mmol/L (3.5-5.1); SODIUM 134 mmol/L (136-145); TCO2 25 mmol/L (25-35); TOTAL BILIRUBIN 1.41 mg/dL (0.20-1.00); TOTAL PROTEIN 6.5 g/dL (6.3-8.3)
[2018-08-13] MEDS: ZITHROMAX 500 MG/NS 500 MG/250 ML IVPB IV SCH (22:24)
[2018-08-14] MEDS: NS 1,000 ML IV SCH (03:14)
[2018-08-14] MEDS: ZOSYN 3.375 GM in NS 50 ML IV SCH ×2 (04:09→11:22)
[2018-08-14] MEDS: DILAUDID IV PRN ×2 (05:19→11:22)
[2018-08-14] MEDS: PROTONIX PO SCH (06:04)
[2018-08-14 06:24] LABS: BASO# 0.01 X1000 (0.0-0.2); BASO% 0.1 % (0.0-0.8); EOS# 0.01 X1000 (0.0-0.7); EOS% 0.1 % (0.0-10.0); HEMATOCRIT 38.2 % (42.0-52.0); HEMOGLOBIN 13.1 g/dL (14.0-18.0); IMM GRAN# 0.04 X1000 (0.0-0.04); IMM GRAN% 0.3 % (0.0-0.5); LYMPH# 0.83 X1000 (1.2-3.4); LYMPH% 6.1 % (20.5-51.1); MCH 33.7 PG (27-31); MCHC 34.3 g/dL (33-37); MCV 98.2 FL (81-99); MONO# 1.13 X1000 (0.11-0.59); MONO% 8.3 % (1.7-9.3); NEUT# 11.56 X1000 (1.4-6.5); NEUT% 85.1 % (42.2-75.2); PLT 155 X1000 (130-400); RBC 3.89 XMIL (4.7-6.1); RDW 12.2 % (11.5-14.5); WBC 13.58 X1000 (4.8-10.8)
--- NOTE | 2018-08-14 07:10 | GENERAL SURGERY PROGRESS NOTE ---
DATE: 08/14/2018 SUBJECTIVE: Patient seems to be doing better. He is sore. OBJECTIVE: Vital Signs: The patient is currently afebrile. His vital signs are stable. General Examination: No acute distress. Cardiovascular: Regular rate and rhythm. Lungs: Grossly clear. Abdomen: Soft, appropriately tender. WILFREDO drain in place, looks like serosanguineous output. ASSESSMENT AND PLAN: A 58-year-old gentleman status post laparoscopic cholecystectomy. Postoperative state. At this time, the patient seems to be doing okay. We will keep his Jose Luis- Srivastava drain in place but I think he can likely be discharged home today. cc: Richard Combs MD
--- NOTE | 2018-08-14 07:46 | Diag Imaging Result Doc PS360 ---
EXAM: CHEST-PORTABLE INDICATION: dyspnea TECHNIQUE: One view COMPARISON: 01/20/2018 FINDINGS: Inspiration is suboptimal. Central vasculature are borderline prominent suggesting mild pulmonary venous congestion. There may also be a component of vascular crowding due to suboptimal inspiration. There is no discrete pleural fluid collection or pneumothorax. Cardiac silhouette is within normal limits accounting for magnification from AP technique. IMPRESSION: Suggestion of mild pulmonary venous congestion. Electronically signed by Norris Post 08/14/2018 7:44 AM
[2018-08-14] MEDS: PRINIVIL PO SCH (09:47)
[2018-08-14] MEDS: NICODERM PATCH TD SCH (09:47)
[2018-08-14] MEDS: DUONEB (A & A) INH SCH (10:10)
[2018-08-14] MEDS ORDERED: ZOFRAN PO PRN (14:02)
[2018-08-14 14:18] VITALS: BP 157/105
--- NOTE | 2018-08-15 06:30 | DISCHARGE SUMMARY ---
ADMISSION DATE: 08/11/2018 DISCHARGE DATE: 08/14/2018 DISCHARGE DIAGNOSES: 1. Acute cholecystitis. 2. Chronic obstructive pulmonary disease with pneumonia. 3. Hypertension. HISTORY: The patient came in with abdominal pain admitted on the per Dr. Quiroz. He has cholelithiasis and cholecystitis. He had questionable aspiration pneumonia. He had previous history of malignant polyp. He underwent laparoscopic cholecystectomy per Dr. Combs on the , which he did without difficulty. He stabilized. On the , he was tolerating p.o. without difficulty. Now, his saturations have kind of been on the low side, but they were about 91% on room air. He seemed to be breathing okay. White count was about 13,000. Rest of his data was unremarkable. He will need to follow up with his PCP. His CT scan did not show any evidence of malignancy, but reportedly had a malignant polyp so he will need follow up with Dr. Carrizales. Augmentin 875 q.12, Cozaar 25 daily, [place] p.r.n. pain, Prilosec 40, Ventolin 2 puffs q.i.d. for 1 week then q.2 p.r.n. and Zofran 4 mg q.6h p.r.n. nausea. He is trying to be set up with a primary care physician. TIME SPENT: 32 minute discharge. cc: MD Richard Phillips MD Dr. Yousuf
== END 2018-08-14 15:45 | disposition home or self-care (01) | DRG 417 ==
LOC: ED 14:00 → 4N 20:06 → SUATTDRO 20:06
PROVIDERS: ATTEND Internal Medicine
CPT/HCPCS: 71010; 71045; 74177; 76705; 80048; 80053; 80307; 80320; 81001; 82055; 82150; 83036; 83690; 84439; 84443; 85025; 85610; 85730; 87040; 88304; 94640; 94760; 94761; 94799; 96361; 96365; 96372; 96375; 99285; 99291; A9270; C9113; G0480; G6040; J0330; J0360; J0456; J0500; J1100; J1170; J1885; J2250; J2270; J2405; J2543; J2765; J3010; J3480; J7030; J7120; Q9967; S0020; S0028; S0164